=== PATIENT | female | born 1985 | race Caucasian/White ===

== ENCOUNTER 2018-05-11 03:25 | Emergency (ER) | payer BC ==
[2018-05-11 03:47] VITALS: PULSE 78; TEMP 98.1
--- NOTE | 2018-05-11 04:13 | C.PDOC ---
History Of Present Illness 33 year old female brought in via [facility]. Patient has a Hx of obsessive compulsive disorder in the past. Denies suicidal ideation or homicidal ideation. Chief Complaint (Nursing): Psychiatric Evaluation History Per: Patient History/Exam Limitations: no limitations Onset/Duration Of Symptoms: Hrs Current Symptoms Are (Timing): Still Present Suicide/Self Injury Attempted (Context): None Modifying Factor(s): None Associated Symptoms: Other (Manicky) Involuntary Hold By: None Recent travel outside of the [place]: No Past Medical History Reviewed: Historical Data, Nursing Documentation, Vital Signs Vital Signs: Last Vital Signs Temp 98.1 F 05/11/18 03:37 Pulse 78 05/11/18 03:37 Resp 16 05/11/18 03:37 BP Pulse Ox 100 05/11/18 03:37 Family History: States: Unknown Family Hx - Social History Hx Alcohol Use: No Hx Substance Use: No Review Of Systems Constitutional: Negative for: Fever, Chills Cardiovascular: Negative for: Chest Pain, Palpitations Respiratory: Negative for: Cough, Shortness of Breath Gastrointestinal: Negative for: Nausea, Vomiting Neurological: Negative for: Weakness, Numbness Psych: Positive for: Other (Manicky). Negative for: Suicidal ideation Physical Exam - Physical Exam Appears: Non-toxic, Other (talkative) Skin: Normal Color, Warm, Dry Head: Atraumatic, Normacephalic Eye(s): bilateral: Normal Inspection Oral Mucosa: Moist Neck: Normal, Supple Chest: Symmetrical, No Tenderness Cardiovascular: Rhythm Regular Respiratory: Normal Breath Sounds, No Rales, No Rhonchi, No Wheezing Gastrointestinal/Abdominal: Soft, No Tenderness Back: No CVA Tenderness Neurological/Psych: Oriented x3, Normal Speech ED Course And Treatment - Laboratory Results Result Diagrams: 05/11/18 05:50 O2 Sat by Pulse Oximetry: 100 (Room air) Pulse Ox Interpretation: Normal Progress Note: Blood work and urinalysis ordered. Disposition Discussed With .: [facility] Doctor Will See Patient In The: Office Counseled Patient/Family Regarding: Diagnosis - Disposition Referrals: [facility] MD [Staff Provider] - Disposition: HOME/ ROUTINE Disposition Time: 06:13 Condition: STABLE Instructions: Bipolar Disorder (DC) Forms: Stream[employer] (Latvian) - POA Present On Arrival: None - Clinical Impression Clinical Impression: Bipolar disorder - Scribe Statement The provider has reviewed the documentation as recorded by the Scribe Erik Bryant All medical record entries made by the Cheyenneibe were at my direction and personally dictated by me. I have reviewed the chart and agree that the record accurately reflects my personal performance of the history, physical exam, medical decision making, and the department course for this patient. I have also personally directed, reviewed, and agree with the discharge instructions and disposition.
[2018-05-11 05:57] LABS: BASO % 0.6 % (0.0-2.0); EOS # 0.3 K/uL (0.0-0.7); EOS % 3.9 % (0.0-4.0); HEMOGLOBIN 12.8 g/dL (11.0-16.0); LYMPH # 1.5 K/uL (1.0-4.3); LYMPH % 22.4 % (20.0-40.0); MEAN CELL VOLUME 92.9 fL (81.0-99.0); MEAN CORPUSCULAR HEMOGLOBIN 30.8 pg (27.0-31.0); MEAN CORPUSCULAR HGB CONC 33.1 g/dL (33.0-37.0); MEAN PLATELET VOLUME 7.6 fL (7.2-11.7); MONO # 0.6 K/uL (0.0-0.8); MONO % 8.8 % (0.0-10.0); NEUT # 4.2 K/uL (1.8-7.0); NEUT % 64.3 % (50.0-75.0); RBC 4.15 Mil/uL (3.80-5.20); RED CELL DISTRIBUTION WIDTH 13.8 % (11.5-14.5); WHITE BLOOD COUNT 6.5 K/uL (4.8-10.8)
[2018-05-11 06:17] LABS: BLOOD UREA NITROGEN 17 mg/dL (7-17); GFR NON-AFRICAN AMERICAN > 60
[2018-05-11 06:18] LABS: ALB/GLOB RATIO 1.4 (1.0-2.1); ALBUMIN 4.4 g/dL (3.5-5.0); ALT/SGPT 40 U/L (9-52); AST/SGOT 33 U/L (14-36)
[2018-05-11 06:20] VITALS: BP 109/69; RESP 14; O2SAT 96
[2018-05-11 06:52] LABS: BARBITURATES, UR NEGATIVE (NEGATIVE); BENZODIAZEPINES, UR NEGATIVE (NEGATIVE); OPIATES, UR NEGATIVE (NEGATIVE); PHENCYCLIDINE, UR NEGATIVE (NEGATIVE)
== END 2018-05-11 07:15 | disposition home or self-care (01) ==
LOC: C.ER 03:25
DX: F31.9 Bipolar disorder, unspecified (principal)
CPT/HCPCS: 80053; 83735; 84100; 84703; 85025; 99284; G0480